=== PATIENT | female | born 1965 | race Caucasian/White ===

== ENCOUNTER 2019-01-05 11:19 | Emergency (ER) | payer OTHER ==
[2019-01-05 11:50] LABS: Urine Blood NEGATIVE (NEG); Urine Glucose NEGATIVE (NEG); Urine Protein 1+ (NEG)
[2019-01-05] MEDS ORDERED: ONDANSETRON 4 MG/2 ML VIAL ONE (11:51)
[2019-01-05] MEDS ORDERED: MORPHINE 4 MG/ML SYR ONE (11:51)
[2019-01-05] MEDS ORDERED: NA CHLORIDE 0.9% 1,000 ML ONE ×2 (11:52→13:44)
[2019-01-05 12:18] LABS: Urine Bacteria NONE SEEN /HPF (<20); Urine Culture Reflex Order NOT NEEDED; Urine RBC NONE SEEN /HPF (NONE SEEN)
[2019-01-05 12:20] LABS: Basophils % 0.6 % (0-1.3); Hematocrit 46.1 % (36.0-45.0); Lymphocytes % 9.7 % (15.3-44.8); MPV 8.8 fL (7.6-11.3); RBC Red Blood Cell Count 4.78 M/uL (3.86-4.86)
[2019-01-05 12:37] LABS: Bilirubin Direct 0.2 mg/dL (0-0.2); Bilirubin Total 0.7 mg/dL (0.2-1.0); Protein, Total 6.8 g/dL (6.4-8.2)
--- NOTE | 2019-01-05 13:31 | RAD REPORT ---
EXAM DESCRIPTION: CT - Abdomen Pelvis W Contrast - 01/05/2019 1:09 pm CLINICAL HISTORY: Abdominal pain, nausea, history of esophageal surgery and hernia repair COMPARISON: None. TECHNIQUE: Biphasic, helical CT imaging of the abdomen and pelvis was performed following 100 ml non -ionic IV contrast. No oral contrast administered. All CT scans are performed using dose optimization technique as appropriate and may include automated exposure control or mA/KV adjustment according to patient size. FINDINGS: No acute lung base findings. No pericardial thickening or effusion. The liver, spleen, and pancreas show no suspicious findings. Gallbladder and biliary tree are also wi thout suspicious finding. Patient has bilateral prominent renal pelves. Right ureter is mildly dilated along its entire course. There is no obstructing or nonobstructing calculus present. Renal function is symmetric and without delay. No pyelonephritis or acute parenchymal process. No bladder abnormalities. No adrenal abnormali ties. Postsurgical changes are present at or near the GE junction. Proximal to the staple line there is eit her a hiatal hernia or dilated distal esophagus. Baseline for the patient is unknown. Given the surgi lis procedure performed, of the possible dilated esophagus or hiatal hernia is not outside of unexpec rito finding. Correlation is needed with any localizing symptoms. Distal to the surgical staple line t he stomach shows no wall thickening or mass. No dilated large or small bowel. Moderate stool volume is scattered throughout the colon. No active c olon process identified. Appendicitis is not suspected. No free air, free fluid or inflammatory stra nding. No hernia, mass or bulky lymphadenopathy. No uterine or ovarian suspicious finding. No suspicious bony findings. IMPRESSION: Contrast enhanced CT abdomen and pelvis imaging shows no acute or emergent finding. Dilatation of the right collecting system is identified without an obstructing calculus or mass. Ther e is no asymmetry or delayed function of the right kidney. Postsurgical changes are present at or near the GE junction. No comparison is available. Proximal to the staple line there is either a hiatal hernia or dilated distal esophagus. Unless the patient is ac utely symptomatic near the GE junction this is probably baseline.
--- NOTE | 2019-01-05 15:00 | RAD REPORT ---
EXAM DESCRIPTION: US - Transvaginal Study Probe - 01/05/2019 2:41 pm CLINICAL HISTORY: Pelvic pain COMPARISON: None. TECHNIQUE: Endovaginal sonography was performed. FINDINGS: Uterus is difficult to visualize. Uterus measures 6.5 x 3.2 x 4.3 cm. Endometrium is appro ximately 6 mm. No endometrial mass identifiable. No myometrial mass seen. No blood or fluid seen in t he cul de sac. Neither ovary was identifiable. Ovaries are obscured by prominent adnexal bowel gas. IMPRESSION: No uterine abnormality identifiable. Both ovaries were obscured by bowel gas.
--- NOTE | 2019-01-05 15:14 | EDPHYS ---
Physician Documentation [facility] Name: Jeannine Hogan Age: 53 yrs Sex: Female : 1965 Arrival Date: 01/05/2019 Time: 11:21 Bed 16 Private MD: ED Physician Jayden Reyna HPI: 01/05 15:25 This 53 yrs old Female presents to ER via Ambulatory with complaints of kb Abdominal Pain. 15:25 The patient presents with abdominal pain in the left lower quadrant. Onset: The kb symptoms/episode began/occurred this morning. The symptoms do not radiate. Associated signs and symptoms: Pertinent positives: nausea. The symptoms are described as constant. Modifying factors: The symptoms are alleviated by nothing, the symptoms are aggravated by nothing. Severity of pain: At its worst the pain was mild in the emergency department the pain is unchanged. The patient has not experienced similar symptoms in the past. The patient has not recently seen a physician. 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 - Social history:: Smoking status: Patient/guardian denies using tobacco. - Ebola Screening: : No symptoms or risks identified at this time. ROS: 15:24 Constitutional: Negative for fever, chills, and weight loss, Cardiovascular: Negative kb for chest pain, palpitations, and edema, Respiratory: Negative for shortness of breath, cough, wheezing, and pleuritic chest pain, Back: Negative for injury and pain, : Negative for injury, bleeding, discharge, and swelling, MS/Extremity: Negative for injury and deformity, Skin: Negative for injury, rash, and discoloration, Neuro: Negative for headache, weakness, numbness, tingling, and seizure. 15:24 Abdomen/GI: Positive for abdominal pain, nausea, Negative for vomiting, diarrhea, constipation, abdominal cramps, abdominal distension, anorexia. Exam: 15:24 Constitutional: This is a well developed, well nourished patient who is awake, alert, kb and in no acute distress. Head/Face: Normocephalic, atraumatic. ENT: Nares patent. No nasal discharge, no septal abnormalities noted. Tympanic membranes are normal and external auditory canals are clear. Oropharynx with no redness, swelling, or masses, exudates, or evidence of obstruction, uvula midline. Mucous membranes moist. Neck: Trachea midline, no thyromegaly or masses palpated, and no cervical lymphadenopathy. Supple, full range of motion without nuchal rigidity, or vertebral point tenderness. No Meningismus. Chest/axilla: Normal chest wall appearance and motion. Nontender with no deformity. No lesions are appreciated. Cardiovascular: Regular rate and rhythm with a normal S1 and S2. No gallops, murmurs, or rubs. Normal PMI, no JVD. No pulse deficits. Respiratory: Lungs have equal breath sounds bilaterally, clear to auscultation and percussion. No rales, rhonchi or wheezes noted. No increased work of breathing, no retractions or nasal flaring. Back: No spinal tenderness. No costovertebral tenderness. Full range of motion. Skin: Warm, dry with normal turgor. Normal color with no rashes, no lesions, and no evidence of cellulitis. MS/ Extremity: Pulses equal, no cyanosis. Neurovascular intact. Full, normal range of motion. Neuro: Awake and alert, GCS 15, oriented to person, place, time, and situation. Cranial nerves II-XII grossly intact. Motor strength 5/5 in all extremities. Sensory grossly intact. Cerebellar exam normal. Normal gait. 15:24 Abdomen/GI: Inspection: abdomen appears normal, Bowel sounds: normal, in all quadrants, Palpation: soft, in all quadrants, moderate abdominal tenderness, in the left lower quadrant, Rectal exam: is unremarkable. Vital Signs: 11:27 BP 160 / 104; Pulse 90; Resp 18 S; Temp 97.7(O); Pulse Ox 98% on R/A; Weight 72.57 kg aa5 (R); Height 5 ft. 4 in. (162.56 cm) (R); Pain 9/10; 12:12 BP 156 / 100; Pulse 73; Resp 16; Pulse Ox 99% ; bp 12:52 BP 160 / 101; Pulse 65; Resp 16; Pulse Ox 100% ; bp 13:53 BP 146 / 92; Pulse 61; Resp 16; Pulse Ox 100% ; bp 15:00 BP 147 / 92; Pulse 63; Resp 16; Temp 98; Pulse Ox 100% ; bp 11:27 Body Mass Index 27.46 (72.57 kg, 162.56 cm) aa5 MDM: 11:28 Patient medically screened. kb 15:19 Data reviewed: vital signs, nurses notes. Data interpreted: Pulse oximetry: on room air kb is 100 %. Interpretation: normal. Counseling: I had a detailed discussion with the patient and/or guardian regarding: the historical points, exam findings, and any diagnostic results supporting the discharge/admit diagnosis, lab results, radiology results, the need for outpatient follow up, a family practitioner, a paper finisher, to return to the emergency department if symptoms worsen or persist or if there are any questions or concerns that arise at home. 01/05 11:40 Order name: Basic Metabolic Panel; Complete Time: 12:38 kb 01/05 11:40 Order name: CBC with Diff; Complete Time: 12:38 kb 01/05 11:40 Order name: Hepatic Function; Complete Time: 12:38 kb 01/05 11:40 Order name: Lipase; Complete Time: 12:38 kb 01/05 11:40 Order name: Urine Microscopic Only; Complete Time: 12:20 kb 01/05 11:42 Order name: Urine Dipstick--Ancillary (enter results); Complete Time: 11:52 kb 01/05 11:40 Order name: IV Saline Lock; Complete Time: 12:08 kb 01/05 11:42 Order name: Urine --Ancillary (enter results); Complete Time: 11:52 kb 01/05 12:39 Order name: CT Abd/Pelvis - IV Contrast Only; Complete Time: 13:33 kb 01/05 13:43 Order name: US Transvaginal Study (Probe); Complete Time: 15:04 kb 01/05 11:40 Order name: Labs collected and sent; Complete Time: 12:09 kb Administered Medications: 12:00 Drug: NS 0.9% 1000 ml Route: IV; Rate: 1000 ml; Site: left antecubital; bp 13:30 Follow up: IV Status: Completed infusion; IV Intake: 1000ml bp 12:00 Drug: Zofran 4 mg Route: IVP; Site: left antecubital; bp 13:39 Follow up: Response: Nausea is decreased bp 12:00 Drug: morphine 4 mg Route: IVP; Site: left antecubital; bp 13:38 Follow up: Response: Pain is decreased bp 13:52 Drug: NS 0.9% 1000 ml Route: IV; Rate: 1000 ml; Site: left antecubital; bp 15:22 Follow up: IV Status: Completed infusion; IV Intake: 1000ml bp Disposition: 15:41 Co-signature as Attending Physician, Jayden Reyna MD. rn Disposition: 01/05/19 15:12 Discharged to Home. Impression: Lower abdominal pain, unspecified, Volume depletion. - Condition is Stable. - Discharge Instructions: Abdominal Pain, Adult, [id number], Dehydration, Adult, [id number]. - Prescriptions for Bentyl 20 mg Oral Tablet - take 1 tablet by ORAL route every 6 hours As needed; 20 tablet. Zofran 4 mg Oral Tablet - take 1 tablet by ORAL route every 6 hours As needed; 20 tablet. Diclofenac Sodium 75 mg Oral Tablet, Delayed Release (E.C.) - take 1 tablet by ORAL route 2 times per day As needed; 30 tablet. - Work release form, Medication Reconciliation Form, Thank You Letter, Antibiotic Education, Prescription Opioid Use form. - Follow up: Private Physician; When: 2 - 3 days; Reason: Recheck today's complaints, Continuance of care, Re-evaluation by your physician. Follow up: Emergency Department; When: As needed; Reason: Worsening of condition. Signatures: Dispatcher [employer] EDMS Cassia Pollack, AUTOMOTIVE WINDOW TINTER-C AUTOMOTIVE WINDOW TINTER-Ckb Jayden Reyna MD MD rn Calderon, Audri, RN RN aa5 Tony Nguyen RN RN bp Corrections: (The following items were deleted from the chart) 15:12 15:12 01/05/2019 15:12 Discharged to Home. Impression: Lower abdominal pain, kb unspecified. Condition is Stable. Forms are Medication Reconciliation Form, Thank You Letter, Antibiotic Education, Prescription Opioid Use. Follow up: Private Physician; When: 2 - 3 days; Reason: Recheck today's complaints, Continuance of care, Re-evaluation by your physician. Follow up: Emergency Department; When: As needed; Reason: Worsening of condition. kb 15:24 15:12 01/05/2019 15:12 Discharged to Home. Impression: Lower abdominal pain, bp unspecified; Volume depletion. Condition is Stable. Forms are Medication Reconciliation Form, Thank You Letter, Antibiotic Education, Prescription Opioid Use. Follow up: Private Physician; When: 2 - 3 days; Reason: Recheck today's complaints, Continuance of care, Re-evaluation by your physician. Follow up: Emergency Department; When: As needed; Reason: Worsening of condition. kb
--- NOTE | 2019-01-05 15:14 | ER ---
Nurse's Notes [facility] Name: Jeannine Hogan Age: 53 yrs Sex: Female : 1965 Arrival Date: 01/05/2019 Time: 11:21 Bed 16 Private MD: Diagnosis: Lower abdominal pain, unspecified;Volume depletion Presentation: 01/05 11:24 Presenting complaint: Patient states: abdominal pain and nausea that began today. aa5 Denies vomiting, denies diarrhea. Pt also c/o lower back pain. Transition of care: patient was not received from another setting of care. Onset of symptoms was December 2018. Risk Assessment: Do you want to hurt yourself or someone else? Patient reports no desire to harm self or others. Initial Sepsis Screen: Does the patient meet any 2 criteria? No. Patient's initial sepsis screen is negative. Does the patient have a suspected source of infection? No. Patient's initial sepsis screen is negative. Care prior to arrival: None. 11:24 Acuity: YAMILETH 3 aa5 11:24 Method Of Arrival: Ambulatory aa5 Triage Assessment: 11:30 General: Appears in no apparent distress. uncomfortable, Behavior is calm, cooperative, bp appropriate for age. Pain: Complains of pain in abdomen. EENT: No deficits noted. Neuro: No deficits noted. Cardiovascular: No deficits noted. Respiratory: No deficits noted. GI: Reports lower abdominal pain. : No signs and/or symptoms were reported regarding the genitourinary system. Derm: No deficits noted. Musculoskeletal: No deficits noted. 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 - Social history:: Smoking status: Patient/guardian denies using tobacco. - Ebola Screening: : No symptoms or risks identified at this time. Screenin:30 Abuse screen: Denies threats or abuse. Denies injuries from another. Nutritional bp screening: No deficits noted. Tuberculosis screening: No symptoms or risk factors identified. Fall Risk None identified. Assessment: 11:30 General: SEE TRIAGE NOTE. bp 12:53 Reassessment: PT TO CT WITH HAND SHOES SEWER. bp 13:53 Reassessment: ALL CURRENT ORDERS COMPLETED, IVF INFUSING. bp 14:47 Reassessment: PT RETURNED FROM U/S, DISPO PENDING. bp 15:21 Reassessment: PT D/C HOME AMBULATORY WITH FRIEND, DX WITH LOWER ABDOMINAL PAIN AND bp VOLUME DEPLETION. Vital Signs: 11:27 BP 160 / 104; Pulse 90; Resp 18 S; Temp 97.7(O); Pulse Ox 98% on R/A; Weight 72.57 kg aa5 (R); Height 5 ft. 4 in. (162.56 cm) (R); Pain 9/10; 12:12 BP 156 / 100; Pulse 73; Resp 16; Pulse Ox 99% ; bp 12:52 BP 160 / 101; Pulse 65; Resp 16; Pulse Ox 100% ; bp 13:53 BP 146 / 92; Pulse 61; Resp 16; Pulse Ox 100% ; bp 15:00 BP 147 / 92; Pulse 63; Resp 16; Temp 98; Pulse Ox 100% ; bp 11:27 Body Mass Index 27.46 (72.57 kg, 162.56 cm) aa5 ED Course: 11:21 Patient arrived in ED. aa5 11:26 Triage completed. aa5 11:26 Arm band placed on. aa5 11:28 Tony Nguyen, LIBBY is Primary Nurse. bp 11:28 Cassia Pollack FNP-C is PHCP. kb 11:28 Jayden Reyna MD is Attending Physician. kb 11:30 Patient has correct armband on for positive identification. Bed in low position. Call bp light in reach. Side rails up X2. Adult w/ patient. 12:05 Inserted saline lock: 20 gauge in left antecubital area, using aseptic technique. Blood bp collected. 13:01 CT Abd/Pelvis - IV Contrast Only In Process Unspecified. EDMS 14:27 US Transvaginal Study (Probe) In Process Unspecified. EDMS 14:42 Ultrasound completed. hr 15:21 No provider procedures requiring assistance completed. IV discontinued, intact, bp bleeding controlled, No redness/swelling at site. Pressure dressing applied. Administered Medications: 12:00 Drug: NS 0.9% 1000 ml Route: IV; Rate: 1000 ml; Site: left antecubital; bp 13:30 Follow up: IV Status: Completed infusion; IV Intake: 1000ml bp 12:00 Drug: Zofran 4 mg Route: IVP; Site: left antecubital; bp 13:39 Follow up: Response: Nausea is decreased bp 12:00 Drug: morphine 4 mg Route: IVP; Site: left antecubital; bp 13:38 Follow up: Response: Pain is decreased bp 13:52 Drug: NS 0.9% 1000 ml Route: IV; Rate: 1000 ml; Site: left antecubital; bp 15:22 Follow up: IV Status: Completed infusion; IV Intake: 1000ml bp Intake: 13:30 IV: 1000ml; Total: 1000ml. bp 15:22 IV: 1000ml; Total: 2000ml. bp Outcome: 15:12 Discharge ordered by . kb 15:22 Discharged to home ambulatory, with friend. bp 15:22 Condition: stable 15:22 Discharge instructions given to patient, Instructed on discharge instructions, follow up and referral plans. medication usage, Demonstrated understanding of instructions, follow-up care, medications, Prescriptions given X 3. 15:24 Patient left the ED. bp Signatures: Dispatcher [employer] EDMS Cassia Pollack, RESIDENT DOCTOR-C RESIDENT DOCTOR-Yudy Malone Audri, RN RN aa5 Tony Nguyen, RN RN bp
== END 2019-01-05 15:24 | disposition home or self-care (01) ==
LOC: ER 11:19
DX: E86.9 Volume depletion, unspecified (principal)
CPT/HCPCS: 96361; 85025; 80048; 36415; 81025; 80076; 83690; 74177; 76830; 96375; 96374; 99284; Q9967; J7030 ×2; J2405; 81003; 81015